=== PATIENT | male | born 1935 | race Caucasian/White ===

== ENCOUNTER 2016-09-11 17:15 | Inpatient (IN) | payer OTHER ==
[2016-09-11] MEDS ORDERED: NS 1,000 ML IV ONE ×2 (17:41→18:58)
[2016-09-11] MEDS ORDERED: LASIX IV ONE (17:41)
[2016-09-11 18:17] LABS: ALLEN TEST YES; BE -5.8 mmoll (-3.0-3.0); BLOOD TYPE ARTERIAL; DRAW SITE L RADIAL; O2(CT) 21.8 mL/dL (15.0-23.0); PCO2(98.6) 28 mmHg (35-45); PO2(98.6) 111 mmHg (60-100); SAMPLE BLOOD; SAO2 100.3 % (95.0-100.0)
[2016-09-11 18:18] LABS: MODALITY VENTIMASK
[2016-09-11 18:19] LABS: MANUAL DIFF NEEDED? NO
[2016-09-11 18:43] LABS: INR 1.11; PROTIME 11.8 Seconds (9.2-11.7); PTT 30.1 Seconds (22.0-36.0)
[2016-09-11 18:44] LABS: BASO% 0.6 % (0.0-0.8); EOS% 2.6 % (0.0-10.0); HEMATOCRIT 51.2 % (42.0-52.0); IMM GRAN# 0.55 X1000 (0.0-0.04); IMM GRAN% 3.6 % (0.0-0.5); LYMPH# 2.01 X1000 (1.2-3.4); LYMPH% 13.1 % (20.5-51.1); MCH 31.6 PG (27-31); MCHC 31.3 g/dL (33-37); MONO# 1.48 X1000 (0.11-0.59); MONO% 9.6 % (1.7-9.3); MPV 12.2 FL (7.4-10.4); NEUT% 70.5 % (42.2-75.2); PLT 220 X1000 (130-400); RBC 5.07 XMIL (4.7-6.1)
[2016-09-11 18:57] LABS: ALBUMIN 3.3 g/dL (3.5-5.0); CALCIUM 9.9 mg/dL (8.8-10.2); MAGNESIUM 2.9 mg/dL (1.5-2.7); POTASSIUM 5.5 mmol/L (3.5-5.1); TOTAL BILIRUBIN 0.4 mg/dL (0.20-1.00); TOTAL PROTEIN 6.3 g/dL (6.3-8.3)
[2016-09-11] MEDS ORDERED: VANCOMYCIN 1 GM/NS 250 ML IV ONE (18:57)
[2016-09-11] MEDS ORDERED: ZITHROMAX 500 MG/NS 250 ML IV ONE (18:58)
[2016-09-11 19:24] LABS: URINE CULTURE NEEDED? NO; URINE MICRO REVIEW NEEDED? NO; URINE SOURCE CATH
[2016-09-11 19:27] LABS: BILIRUBIN URINE NEGATIVE (NEGATIVE); BLOOD URINE NEGATIVE (NEGATIVE); COLOR YELLOW; GLUCOSE URINE NEGATIVE (NEGATIVE); LEUKOCYTES URINE NEGATIVE (NEGATIVE); NITRITE URINE NEGATIVE (NEGATIVE); PROTEIN URINE NEGATIVE (NEGATIVE); TURBIDITY URINE CLEAR (CLEAR); UROBILINOGEN URINE NORMAL (NORMAL)
[2016-09-11 19:29] LABS: UR EPITHELIAL CELLS <10 /HPF (<10); URINE BACTERIA NEGATIVE /HPF; URINE RBC <10 /HPF (<10); URINE WBC <10 /HPF (<10)
[2016-09-11] MEDS: DUONEB (A & A) INH SCH ×2 (19:30→23:33)
[2016-09-11] MEDS ORDERED: LEVAQUIN 750 MG/D5W 150 ML IV SCH (19:30)
[2016-09-11] MEDS: LOVENOX SUBQ SCH (22:08)
[2016-09-11] MEDS: SODIUM CHLORIDE 0.9% INJ SCH (22:09)
[2016-09-11] MEDS: PROTONIX IV SCH (22:09)
[2016-09-12] MEDS: NEO-SYNEPHRINE 50 MG in NS 250 ML IV SCH ×2 (02:26→21:00)
[2016-09-12] MEDS: DUONEB (A & A) INH SCH ×6 (03:38→23:19)
--- NOTE | 2016-09-12 07:16 | HISTORY AND PHYSICAL ---
HISTORY OF PRESENT ILLNESS: This is a 81-year-old white gentleman who was a resident of [facility]. He was transferred after initial admission here. He had a stroke with aphasia and had difficulty in swallowing. Apparently, it appeared like he had aspirated at the intermediate. The x-ray revealed left lower lobe pneumonia. He had leukocytosis. He became very hypoxic and was sent to the emergency room for evaluation. There, he was found to be very hypoxic and short of breath; hence, he was admitted. He has history of bladder tumor, history of TIAs in the past, and, according to his , he had some carotid artery problems probably on the right side during his last admission. He is totally aphasic and cannot communicate. MEDICATIONS: Home medications include scopolamine; Transderm Scop; potassium chloride; pravastatin 40 mg; metoprolol plus hydrochlorothiazide 1 tablet b.i.d. 15-25; metformin 500 mg b.i.d.; enoxaparin 40 mg every 24 hours; amlodipine and benazepril 1 tab daily, and aspirin daily. REVIEW OF SYSTEMS: Other than shortness of breath and fever, it is noncontributory. PHYSICAL EXAMINATION: VITAL SIGNS: Temperature 97.4 degrees Fahrenheit. Pulse 112 per minute. Respiratory rate 24 per minute. Blood pressure was only 77/42. HEENT: Head normocephalic. Eyes: Pupils PERRLA. Fundus examination could not be done. ENT examination grossly unremarkable. NECK: Supple. JVP normal. There is no evidence of lymphadenopathy, thyroid enlargement. EXTREMITIES: There is mild pedal edema. No calf tenderness, anemia, cyanosis, or clubbing noted. Pedal pulses feeble. BREAST EXAM: Normal. CHEST: Normal on inspection. LUNGS: Bilateral basal rales with some expiratory wheezing. PMI in normal position. HEART: Sounds normal. No murmur, gallop or rub noted. ABDOMEN: Nondistended. Hernial orifices normal. No guarding, rigidity, free fluid, masses, or organomegaly. Bowel sounds normal. RECTAL EXAM: Deferred. AFTER SCHOOL PROGRAM COORDINATOR: Higher functions, patient cannot communicate well. He has aphasia. Cranial nerves grossly normal. MOTOR AND SENSORY SYSTEM: Examination produce flaccidity on the right side. Deep tendon reflexes sluggish. Plantars downgoing. SKULL AND SPINE: Examination normal. No cerebellar signs or signs of meningeal irritation. LOCOMOTOR EXAM: Unremarkable. SKIN EXAM: Unremarkable. CLINICAL IMPRESSION: Patient is having some respiratory distress with pneumonia. He probably has aspirated. We have given him 1 dose of vancomycin. Start IV Levaquin and azithromycin has been started. We will get a Pulmonary consult and try to admit him to ICU tonight.
[2016-09-12] MEDS ORDERED: NS 1,000 ML IV SCH (08:00)
--- NOTE | 2016-09-12 08:04 | HISTORY AND PHYSICAL ---
ADDENDUM: His CBC shows white count of 15.4, hemoglobin is 16 g. INR is 1.11. Blood gases reveal he is on 50% FiO2 and oxygen PO2 is 111, pCO2 is 28, pH is 7.4. Chemistry reveals potassium of 5.5, BUN 139, 8 creatinine is 4.7. Urinalysis is negative. He appears to be in renal failure. We will get a Nephrology consult in the morning. Overall prognosis is poor.
[2016-09-12 08:32] LABS: BASO% 0.5 % (0.0-0.8); EOS# 0.36 X1000 (0.0-0.7); EOS% 1.6 % (0.0-10.0); HEMATOCRIT 47.4 % (42.0-52.0); IMM GRAN# 0.57 X1000 (0.0-0.04); IMM GRAN% 2.6 % (0.0-0.5); LYMPH# 1.63 X1000 (1.2-3.4); LYMPH% 7.4 % (20.5-51.1); MANUAL DIFF NEEDED? NO; MCH 31.8 PG (27-31); MCHC 31.6 g/dL (33-37); MCV 100.6 FL (81-99); MONO# 1.95 X1000 (0.11-0.59); MONO% 8.9 % (1.7-9.3); MPV 11.8 FL (7.4-10.4); PLT 227 X1000 (130-400); RBC 4.71 XMIL (4.7-6.1)
--- NOTE | 2016-09-12 08:36 | Diag Imaging Result Document ---
PROCEDURE NAME: CHEST-1 VIEW - 09/12/2016 AP PORTABLE CHEST AT 0745 HOURS: FINDINGS: There is atelectasis present in the left base. The study is somewhat suboptimal due to motion artifact. Otherwise, compared to 09/11/2016 there has been no significant change in the appearance of the chest. IMPRESSION: Stable chest.
--- NOTE | 2016-09-12 08:55 | Diag Imaging Result Document ---
PROCEDURE NAME: CHEST-PORTABLE - 09/11/2016 AP PORTABLE CHEST: TIME: 1900 hours. FINDINGS: The inspiration is less optimal than on 08/18/2016. Otherwise, there has been no significant change. IMPRESSION: Stable chest.
[2016-09-12] MEDS ORDERED: LASIX IV SCH (09:00)
[2016-09-12 09:37] LABS: ALBUMIN 2.8 g/dL (3.5-5.0); CALCIUM 9.1 mg/dL (8.8-10.2)
--- NOTE | 2016-09-12 09:51 | Diag Imaging Result Document ---
PROCEDURE NAME: CHEST-PORTABLE - 09/12/2016 AP PORTABLE ABDOMEN AND CHEST FOR NG TUBE PLACEMENT: TIME: 0855 hours. FINDINGS: The NG tube tip is in the distal esophagus. IMPRESSION: NG tube tip is in the distal esophagus.
[2016-09-12] MEDS: HUMULIN R SUBQ SCH ×3 (11:17→20:12)
[2016-09-12 11:47] LABS: UR CREAT RANDOM 86.2 mg/dL (14-26); UR PROT RANDOM 23.9 mg/dL
[2016-09-12] MEDS: D5W 1,000 ML IV SCH ×2 (12:58→23:35)
[2016-09-12] MEDS: AZACTAM 1 GM in NS 50 ML IV SCH ×2 (13:47→22:08)
--- NOTE | 2016-09-12 14:54 | CONSULTATION ---
DATE OF CONSULTATION: 09/12/2016 PULMONARY CONSULTATION: REFERRING PHYSICIAN: Dr. De Los Santos. CHIEF COMPLAINT: Shortness of breath. HISTORY OF PRESENT ILLNESS: This is a 81-year-old female with a past medical history of TIAs, CHF, diabetes, that presented to the hospital from [facility] with complaints of shortness of breath. Apparently the staff at the assisted said that he was hypoxic and short of breath at their facility. At this time he is in ICU and does not appear to be in any respiratory distress. He is aphasic and does not follow commands. He does have family at the bedside. He states that at the rehab facility he was talking, conversing , and following commands. He has been admitted to the ICU for further evaluation, management, and treatment. REVIEW OF SYSTEMS: Unable to determine secondary to patient's current state. PAST MEDICAL HISTORY: As mentioned in the HPI, otherwise noncontributory. SOCIAL HISTORY: The patient lives at [facility] after being discharged from the hospital from [facility]. FAMILY HISTORY: Noncontributory. ALLERGIES: Penicillin. ACTIVE MEDICATIONS: DuoNeb, Lovenox, Humulin, Levaquin, Protonix, phenylephrine. PHYSICAL EXAMINATION: Vital Signs: Temperature 97.3 degrees, heart rate 109, respiratory rate 27, blood pressure 118/55, oxygen saturation 100%. General: Lying in bed. No acute distress noted. Family at bedside. HEENT: Normocephalic and atraumatic. FANTA. Dry mucous membranes. Cardiovascular: S1 and S2 present. Chest: Reduced entry. Abdomen: Nondistended. Bowel sounds present in all quadrants. Extremities: Trace pedal edema noted. Neuro: The patient is not communicating or following commands. LABS, INVESTIGATIONS: WBC 21.99, RBC IS 4.71, hemoglobin 15, hematocrit 47.4, platelet count 227,000. Sodium 158, potassium 5.5, chloride 119, carbon dioxide 24, anion gap 15, BUN 139, creatinine 4.7, glucose 177. Urinalysis unremarkable. Blood gas reveals a pH 7.4, pCO2 of 28, PO2 of 111, HCO3 of 20.4, SaO2 of 100. Blood cultures pending. Chest x-ray performed on 09/12/2016 shows atelectasis in the left base, otherwise stable chest. ASSESSMENT AND PLAN: This is a 81-year-old male with past medical history mentioned in the history and physical that was sent from [facility] for shortness of breath. Pneumonia and aspiration initially thought, CVA (old) complicating the picture. It appears to be that the patient does have some encephalopathy here. He has recently had transient ischemic attacks. His chest x-ray this morning does not show any obvious pneumonia. The patient is tolerating a 35% Ventimask well. We will continue to supply IV antibiotics, bronchodilators, GI and DVT prophylaxis, and further treatment pending diagnostic studies. Thank you for the courtesy of this consult. [facility] HOSPITAL[facility]
--- NOTE | 2016-09-12 15:28 | CONSULTATION ---
DATE OF CONSULTATION: 09/12/2016 REASON FOR ADMISSION: A history of a bladder tumor and TIA on 08/20/2016. Patient has had increased work of breathing with difficulty swallowing secondary to patient having aphasia due to his recent TIA. X-ray upon admission to the [facility] indicates a left lower lobe pneumonia and leukocytosis. The patient was hypoxic in the emergency room and was found to be short of breath. Subsequently, he was admitted to [facility]'s ICU and is currently being worked up and evaluated. Patient is unable to communicate today. No family is available for review of systems. Best obtained from chart. As noted per previous medical history, patient has had a history of hypertension, recent TIA on 08/20/2016. Otherwise no further notes noted. Previous chart indicates that he has had a bladder tumor. He is followed by Dr. Tan on 05/02/2016. He has a history of BPH with bladder neck contracture. Patient appears to have had a lithotripsy done in May 2015 with a retrograde pyelogram on April 2016. CURRENT ALLERGIES: LISTED PENICILLIN. HOME MEDICATIONS: Have been reviewed. He is on metformin, potassium chloride, Lotrel, Lopressor, Pravachol, Lovenox, transderm scopolamine, enteric-coated aspirin. REVIEW OF SYSTEMS: Unable to perform review of systems due to no family available and patient's inability to communicate. VITAL SIGNS: His current vital signs temperature 98.2 degrees, blood pressure 118/55, heart rate 115, respirations are 29. He is on 50% Ventimask. His saturation was 93%. He has had 1650 in, 750 out per Tuttle catheter. LABS: Today sodium 158, potassium 5, chloride 125, CO2 22, BUN 129, creatinine 4.2, glucose 179, anion gap of 11, calcium 9.1, phosphorus 4, albumin 2.8. White count 21.99, hemoglobin 15, hematocrit 47.4 with a platelet count of 227,000. Patient has a renal ultrasound that is still currently pending. He has a FENa score of 2.04%. His last baseline creatinine in 2016 was 1.2- 1.5. Chest x-ray this a.m. shows adequate NG tube placement with a stable chest. PHYSICAL EXAMINATION: General: This is a 81-year-old white male. He is able to make eye contact. He does attempt to squeeze your hand left greater than right. Otherwise unable to follow any further commands. Remains nonverbal. HEENT: Normocephalic, atraumatic. Conjunctiva is pale. He has FANTA. Pupils are slightly constricted. Neck: Supple. Trachea midline. No JVD. Some thyroid enlargement is noted upon swallowing. Cardiovascular: He is regular rate and rhythm. He is tachycardic on the monitor. Lungs: Diminished breath sounds bilateral. Faint crackles to the posterior bases right greater than left. Remains on O2. Abdomen: Nondistended. Positive bowel sounds. Soft, nontender. Genitourinary: Tuttle catheter remains in place. He currently has adequate urine out at this time. Integumentary: No rashes or lesions noted. He does have several different stages of healing with ecchymosis. Neurological: As mentioned above. ASSESSMENT AND PLAN: 1. Acute kidney injury on chronic kidney disease stage 3B. This appears that this may be acute tubular necrosis secondary to unknown causes. He has a renal ultrasound that is still currently pending. FENa score is in the 2s. He currently has Ignacio- Synephrine infusing for low blood pressure. The patient is slightly tachycardic today. He has leukocytosis and continues on renal dosed antibiotics. Through the day his UOP has improved and his cr has fallen overnight. I expect that he will continue to improve. rg 2. Electrolytes. Patient has hypernatremia and hyperkalemia. We will change normal saline to D5 half-normal. 3. Hyperkalemia. No indications for any changes at this time. We will continue to monitor with hopes that his base fluid of D5W will help pull his potassium down. 4. Acid-base balance. This remains stable. 5. Anemia. This is actually above target. 6. Pneumonia with sepsis. Patient is currently on renal dosed antibiotics at this time. I would to thank you for allowing us to follow with this patient. Seen, data reviewed, discussed with Ariana Maldonado on 09/12/16. I agree with the above assessment and plan of care. rg Dictated by GAMA Antoine for Marcellus Morgan MD [facility]
--- NOTE | 2016-09-12 15:42 | Diag Imaging Result Document ---
PROCEDURE NAME: US RENAL 2 (RETROPER) COMPLETE - 09/12/2016 RENAL ULTRASOUND: FINDINGS: The right kidney measures 12.6 x 6.6 x 5.5 cm. Normal renal echogenicity and cortical thickness. There is a 6 mm echogenic focus in the lower pole. No hydronephrosis. No renal mass. The left kidney measures 9.9 x 5.1 x 5.6 cm. Normal renal echogenicity and cortical thickness. No renal mass. No stone or hydronephrosis. IMPRESSION: I believe there is a nonobstructing right renal stone. No other abnormality identified.
[2016-09-12] MEDS ORDERED: CALMOSEPTINE OINTMENT TOP ONE (16:27)
[2016-09-12] MEDS: LOVENOX SUBQ SCH (18:31)
[2016-09-12] MEDS: PROTONIX IV SCH (18:31)
[2016-09-12] MEDS: TRANSDERM-SCOP TD SCH (19:56)
[2016-09-12] MEDS ORDERED: BLISTEX MEDICATED BERRY LIP BALM TOP PRN (22:12)
[2016-09-13] MEDS: DUONEB (A & A) INH SCH ×6 (03:46→22:54)
[2016-09-13 04:59] LABS: ALLEN TEST YES; BE -3.2 mmoll (-3.0-3.0); BLOOD TYPE ARTERIAL; DRAW SITE R RADIAL; METHB 1.6 % (0.0-1.5); PCO2(98.6) 29 mmHg (35-45); SAMPLE BLOOD; SAO2 97.4 % (95.0-100.0); THB 14.5 g/dL (11.5-17.4); pH(98.6) 7.44 (7.35-7.45)
[2016-09-13 05:00] LABS: MODALITY CANNULA
[2016-09-13] MEDS: AZACTAM 1 GM in NS 50 ML IV SCH ×4 (05:05→21:26)
[2016-09-13 05:06] LABS: MANUAL DIFF NEEDED? NO
[2016-09-13 05:10] LABS: BASO% 0.4 % (0.0-0.8); EOS# 0.44 X1000 (0.0-0.7); EOS% 2.3 % (0.0-10.0); HEMATOCRIT 45.1 % (42.0-52.0); HEMOGLOBIN 14.3 g/dL (14.0-18.0); IMM GRAN# 0.38 X1000 (0.0-0.04); IMM GRAN% 1.9 % (0.0-0.5); LYMPH# 1.34 X1000 (1.2-3.4); LYMPH% 6.9 % (20.5-51.1); MCH 31.8 PG (27-31); MCHC 31.7 g/dL (33-37); MCV 100.2 FL (81-99); MONO% 7.2 % (1.7-9.3); NEUT% 81.3 % (42.2-75.2); PLT 162 X1000 (130-400)
[2016-09-13 05:53] LABS: ALBUMIN 2.7 g/dL (3.5-5.0); POTASSIUM 4.1 mmol/L (3.5-5.1)
[2016-09-13] MEDS: HUMULIN R SUBQ SCH ×4 (06:10→20:06)
--- NOTE | 2016-09-13 07:39 | Diag Imaging Result Document ---
PROCEDURE NAME: CHEST-1 VIEW - 09/13/2016 SINGLE FRONTAL RADIOGRAPH OF THE CHEST: COMPARISON: 09/12/2016. FINDINGS: The NG tube has been advanced. The tip now projects below the diaphragm and out of the field of view, assumed to be in the stomach in the expected position. Left basilar atelectasis and/or infiltrate is essentially stable. No new consolidations are identified. Cardiac silhouette is unchanged. IMPRESSION: Interval advancement of the NG tube that now projects well below the diaphragm and otherwise stable chest.
[2016-09-13] MEDS ORDERED: ASPIRIN EC PO SCH (09:00)
[2016-09-13] MEDS: D5W 1,000 ML IV SCH ×2 (10:35→19:51)
--- NOTE | 2016-09-13 10:57 | PROGRESS NOTE ---
DATE: 09/13/2016 SUBJECTIVE: Mr. Urena is more responsive today. He remains nonverbal. He is unable to move much. He does turn his head to verbal stimuli and is attempting to squeeze my hand to command. OBJECTIVE: Vital Signs: His most recent vital signs, he remains afebrile. Blood pressure 93/58, heart rate 115, respirations 28. He remains on 2 L. Last recorded saturation of 97%. He has had 2423 in. He has had 2025 out per Tuttle catheter. General: This is a 81-year- old, white male. He is currently resting in bed. He appears chronically ill. No acute distress. Skin: Warm and dry. HEENT: Normocephalic, atraumatic. Conjunctiva is pale. He has pupils equal, round, and reactive to light. Pupils remains slightly constricted. Neck: Supple. Trachea midline. No jugular venous distention. His thyroid continues to look slightly enlarged. Cardiovascular: Regular rate and rhythm. He is tachycardic on the monitor. No murmur or gallop appreciated. Lungs: Clear to auscultation anteriorly. Equal excursion. Faint crackles noted to the posterior base, right greater than left. Abdomen: Soft, nontender. Positive bowel sounds. Extremities: Have no edema. No clubbing or cyanosis. Integumentary: No rashes or lesions noted. Neurological: As mentioned above. LABS: Sodium 156, potassium 4.1, chloride 126, CO2 18. BUN 91, creatinine 2.9. Glucose 191. Anion gap 12, calcium 9, phosphorus 2.7, albumin 2.7. White count 19.5, hemoglobin 14.3, hematocrit 45.1, with a platelet count of a 152,000. Blood culture negative. His ABGs are pH 7.44, pCO2 29, pO2 has not been recorded, bicarb is 22.3. ASSESSMENT AND PLAN: 1. Acute kidney injury on chronic kidney disease stage 3-B. Patient's BUN and creatinine have slowly responded to an increase in his blood pressure and fluid volume resuscitation. He remains on Ignacio-Synephrine. His IVs are D5W at 100 mL an hour. No indications for any changes at this time. His urine output has improved. We will continue to monitor. 2. Electrolytes. These remain stable with a mild hypernatremia. Again, we will leave him on his D5W. Ignacio-Synephrine has to be mixed in normal saline. We will monitor labs in the a.m. 3. Acid-base balance. This is stable. 4. Anemia. This remains stable. 5. Pneumonia with sepsis. Patient is on renal dosed antibiotics. I would to thank you for allowing us to follow with this patient. Seen, data reviewed, discussed with Ariana Maldonado on 09/13/16. I agree with the above assessment and plan of care. rg Dictated by GAMA Antoine for Marcellus Morgan MD [facility]
[2016-09-13] MEDS: LEVAQUIN 250 MG/D5W 50 ML IV SCH (19:51)
[2016-09-13] MEDS: PROTONIX IV SCH (19:52)
[2016-09-13] MEDS: SODIUM CHLORIDE 0.9% INJ SCH (19:52)
[2016-09-13] MEDS: LOVENOX SUBQ SCH (19:52)
[2016-09-13] MEDS ORDERED: LEVAQUIN 500 MG/D5W 100 ML IV SCH (22:00)
[2016-09-14] MEDS: DUONEB (A & A) INH SCH ×7 (03:41→22:34)
[2016-09-14 04:33] LABS: ALLEN TEST YES; BE -3.3 mmoll (-3.0-3.0); BLOOD TYPE ARTERIAL; DRAW SITE R RADIAL; METHB 1.6 % (0.0-1.5); O2(CT) 18.6 mL/dL (15.0-23.0); PCO2(98.6) 31 mmHg (35-45); PO2(98.6) 65 mmHg (60-100); SAMPLE BLOOD; SAO2 95.8 % (95.0-100.0); THB 14.3 g/dL (11.5-17.4); pH(98.6) 7.42 (7.35-7.45)
[2016-09-14 04:36] LABS: MODALITY CANNULA
[2016-09-14] MEDS: AZACTAM 1 GM in NS 50 ML IV SCH ×3 (06:25→23:12)
[2016-09-14 06:35] LABS: HEMATOCRIT 41.7 % (42.0-52.0); HEMOGLOBIN 13.1 g/dL (14.0-18.0); MANUAL DIFF NEEDED? NO; MCHC 31.4 g/dL (33-37); MPV 12.3 FL (7.4-10.4)
--- NOTE | 2016-09-14 06:35 | Diag Imaging Result Document ---
PROCEDURE NAME: CHEST-1 VIEW - 09/14/2016 PORTABLE CHEST: COMPARISON: Compared to 09/13/2016. FINDINGS: There is a nasogastric tube overlying the esophagus. The stomach is not included and I do not see the distal portion of the catheter. The heart is not enlarged. The vessels are not overly distended. Partial clearing of the left base. No pleural effusions identified. IMPRESSION: Mild interval improvement.
[2016-09-14 06:57] LABS: ALBUMIN 2.5 g/dL (3.5-5.0); CALCIUM 8.7 mg/dL (8.8-10.2); POTASSIUM 3.8 mmol/L (3.5-5.1)
[2016-09-14] MEDS: HUMULIN R SUBQ SCH ×4 (07:01→21:01)
[2016-09-14 07:58] LABS: BASO% 0.2 % (0.0-0.8); IMM GRAN# 0.27 X1000 (0.0-0.04); IMM GRAN% 1.6 % (0.0-0.5); LYMPH# 0.91 X1000 (1.2-3.4); LYMPH% 5.4 % (20.5-51.1); MCH 31.6 PG (27-31); MCV 100.5 FL (81-99); MONO# 0.82 X1000 (0.11-0.59); MONO% 4.9 % (1.7-9.3); NEUT% 84.9 % (42.2-75.2); PLT 140 X1000 (130-400); RBC 4.15 XMIL (4.7-6.1)
[2016-09-14] MEDS: D5W 1,000 ML IV SCH ×2 (08:47→19:24)
[2016-09-14] MEDS ORDERED: POTASSIUM PHOSPHATE 30 MMOL in NS 250 ML IV ONE (09:20)
--- NOTE | 2016-09-14 09:32 | PROGRESS NOTE ---
DATE: 09/14/2016 SUBJECTIVE: He was just having a bath. He is groaning but he does look at me. He did not answer questions. OBJECTIVE: Vital Signs: Blood pressure 103/58, heart rate 119, respirations 23, afebrile. Intake 4.5 L. Output 1.3 L. Physical Examination: General: No acute distress. Skin: Warm and dry. HEENT: Conjunctivae are pink. Neck: Neck veins are not appreciated. Trachea is midline. Heart: Regular. Tachycardic, gallop. Lungs: Have equal breath sounds. No crackles. Abdomen: Soft, nontender. Bowel sounds are present. Extremities: Have minimal edema. No clubbing or cyanosis. Laboratory Data: Sodium 152, potassium 3.8, chloride 120, bicarbonate 20, BUN 72, creatinine 2.4. Albumin 2.5. IMPRESSION: 1. Acute kidney injury. Progressive improvement with volume resuscitation. Continue same. 2. Hypernatremia. Progressive improvement with free water replacement. Continue same. 3. Acid-base. Moderate metabolic acidosis that is stable.
--- NOTE | 2016-09-14 10:50 | Diag Imaging Result Document ---
PROCEDURE NAME: CHEST/ABD TUBE PLACEMENT - 09/14/2016 SEMIUPRIGHT AP CHEST: COMPARISON: Comparison is made to the study performed earlier. FINDINGS: The nasogastric tube has been advanced since the prior exam. This overlies the esophagus and stomach. The distal portion extends below the lower portion of the film in the abdomen. IMPRESSION: Nasogastric tube overlies the esophagus and the stomach.
--- NOTE | 2016-09-14 11:18 | EKG Report ---
Test Performed on : 09/13/2016 3:21:31 PM Test Reason : TACYCARDIA Blood Pressure : / mmHG Vent. Rate : 112 BPM Atrial Rate : 112 BPM P-R Int : 156 ms QRS Dur : 086 ms QT Int : 316 ms P-R-T Axes : 053 038 054 degrees QTc Int : 431 ms Sinus tachycardia. Low voltage QRS Nonspecific T wave abnormality Abnormal ECG When compared with ECG of 13-SEP-2016 09:37, (Unconfirmed) premature ventricular complexes. are no longer present Confirmed by Roxann Diggs MD ([id number]) on 09/14/2016 12:12:26 PM
--- NOTE | 2016-09-14 11:18 | EKG Report ---
Test Performed on : 09/13/2016 09:37:06 AM Test Reason : TACHYCRDIA Blood Pressure : / mmHG Vent. Rate : 117 BPM Atrial Rate : 117 BPM P-R Int : 154 ms QRS Dur : 088 ms QT Int : 320 ms P-R-T Axes : 051 035 076 degrees QTc Int : 446 ms Sinus tachycardia. with frequent premature ventricular complexes. Low voltage QRS Nonspecific T wave abnormality Abnormal ECG When compared with ECG of 22-AUG-2016 06:26, premature ventricular complexes. are now present Vent. rate has increased BY 60 BPM Criteria for Inferior infarct are no longer present Confirmed by Roxann Diggs MD ([id number]) on 09/14/2016 12:12:24 PM
[2016-09-14] MEDS: ASPIRIN PO SCH (12:31)
[2016-09-14] MEDS: PROTONIX IV SCH (20:50)
[2016-09-14] MEDS: SODIUM CHLORIDE 0.9% INJ SCH (20:51)
[2016-09-14] MEDS: LOVENOX SUBQ SCH (20:51)
[2016-09-15] MEDS: DUONEB (A & A) INH SCH ×6 (03:34→23:44)
[2016-09-15 04:39] LABS: ALLEN TEST YES; BLOOD TYPE ARTERIAL; DRAW SITE R RADIAL; METHB 1.6 % (0.0-1.5); O2(CT) 17.2 mL/dL (15.0-23.0); PCO2(98.6) 28 mmHg (35-45); PO2(98.6) 116 mmHg (60-100); SAMPLE BLOOD; SAO2 98.9 % (95.0-100.0); THB 12.7 g/dL (11.5-17.4); pH(98.6) 7.49 (7.35-7.45)
[2016-09-15 04:40] LABS: MODALITY CANNULA
[2016-09-15 05:03] LABS: MANUAL DIFF NEEDED? NO
[2016-09-15 05:17] LABS: BASO% 0.5 % (0.0-0.8); EOS# 0.48 X1000 (0.0-0.7); EOS% 3.6 % (0.0-10.0); HEMATOCRIT 39.5 % (42.0-52.0); HEMOGLOBIN 12.6 g/dL (14.0-18.0); IMM GRAN% 2.3 % (0.0-0.5); LYMPH# 1.42 X1000 (1.2-3.4); LYMPH% 10.7 % (20.5-51.1); MCH 31.6 PG (27-31); MCHC 31.9 g/dL (33-37); MONO# 0.85 X1000 (0.11-0.59); MONO% 6.4 % (1.7-9.3); MPV 11.9 FL (7.4-10.4); NEUT% 76.5 % (42.2-75.2); PLT 125 X1000 (130-400); RBC 3.99 XMIL (4.7-6.1)
[2016-09-15] MEDS: D5W 1,000 ML IV SCH (05:58)
[2016-09-15 06:13] LABS: ALBUMIN 2.3 g/dL (3.5-5.0); CALCIUM 8.4 mg/dL (8.8-10.2); POTASSIUM 3.8 mmol/L (3.5-5.1)
[2016-09-15] MEDS: AZACTAM 1 GM in NS 50 ML IV SCH ×3 (06:15→22:35)
[2016-09-15] MEDS: HUMULIN R SUBQ SCH ×4 (06:45→20:37)
[2016-09-15] MEDS: ASPIRIN PO SCH (08:25)
--- NOTE | 2016-09-15 08:38 | Diag Imaging Result Document ---
PROCEDURE NAME: CHEST-1 VIEW - 09/15/2016 PORTABLE CHEST X-RAY: COMPARISON: 09/14/2016. FINDINGS: Stable nasogastric tube in good position. There is hazy left lower lobe infiltrate as seen by loss of the left hemidiaphragm. There is cardiomegaly and pulmonary vascular congestion that has worsened since 09/14/2016. IMPRESSION: Worsening pulmonary vascular congestion. New left lower lobe infiltrate or atelectasis.
--- NOTE | 2016-09-15 09:48 | PROGRESS NOTE ---
DATE: 09/15/2016 SUBJECTIVE: He was asleep and did not arouse with verbal and tactile stimuli. OBJECTIVE: Vital Signs: Blood pressure 111/58, heart rate 107, respirations 24, T-max in 99.6. Intake 4.4 L. Output 1.5 L. General: In no acute distress. Skin: Warm and dry. Conjunctivae are pink. Neck: Neck veins are not appreciated. Heart: Regular without gallops. Lungs: Have equal breath sounds. No crackles or wheezes. Sonorous. Abdomen: Soft and nontender. Bowel sounds are present. Extremities: No edema, clubbing, or cyanosis. LABORATORY DATA: Sodium 147, potassium 3.8, chloride 115, bicarbonate 20, BUN 52, creatinine 1.7. Hemoglobin 12.6. IMPRESSION: 1. Acute kidney injury. Resolving with IV fluid resuscitation. He is developing some pulmonary congestion, so we will decrease his intake. 2. Electrolytes: Hypernatremia is slowly improving. He is receiving free water by his nasogastric tube. Stop his IV D5. 3. Acid-base: Acceptable.
[2016-09-15] MEDS ORDERED: POTASSIUM PHOSPHATE 30 MEQ in NS 250 ML IV ONE (10:00)
[2016-09-15] MEDS: LEVAQUIN 250 MG/D5W 50 ML IV SCH (20:16)
[2016-09-15] MEDS: LOVENOX SUBQ SCH (20:16)
[2016-09-15] MEDS: SODIUM CHLORIDE 0.9% INJ SCH (20:16)
[2016-09-15] MEDS: PROTONIX IV SCH (20:16)
[2016-09-15] MEDS: TRANSDERM-SCOP TD SCH (20:17)
[2016-09-16 04:45] LABS: ALLEN TEST YES; BE 1.1 mmoll (-3.0-3.0); BLOOD TYPE ARTERIAL; DRAW SITE R RADIAL; METHB 1.8 % (0.0-1.5); O2(CT) 20.4 mL/dL (15.0-23.0); PCO2(98.6) 32 mmHg (35-45); PO2(98.6) 97 mmHg (60-100); SAMPLE BLOOD; THB 15.2 g/dL (11.5-17.4); pH(98.6) 7.48 (7.35-7.45)
[2016-09-16 04:48] LABS: MODALITY COOL AEROSOL
[2016-09-16 05:03] LABS: MANUAL DIFF NEEDED? NO
[2016-09-16] MEDS: AZACTAM 1 GM in NS 50 ML IV SCH ×3 (05:04→21:12)
[2016-09-16 05:22] LABS: BASO% 0.4 % (0.0-0.8); EOS# 0.41 X1000 (0.0-0.7); EOS% 4.3 % (0.0-10.0); HEMOGLOBIN 13.1 g/dL (14.0-18.0); IMM GRAN# 0.28 X1000 (0.0-0.04); IMM GRAN% 2.9 % (0.0-0.5); LYMPH# 1.09 X1000 (1.2-3.4); LYMPH% 11.4 % (20.5-51.1); MCH 31.9 PG (27-31); MCHC 32.8 g/dL (33-37); MCV 97.3 FL (81-99); MONO# 0.76 X1000 (0.11-0.59); MPV 11.7 FL (7.4-10.4); PLT 129 X1000 (130-400); RBC 4.11 XMIL (4.7-6.1)
[2016-09-16 05:23] LABS: ALBUMIN 2.5 g/dL (3.5-5.0); CALCIUM 8.5 mg/dL (8.8-10.2); POTASSIUM 3.9 mmol/L (3.5-5.1)
[2016-09-16] MEDS: HUMULIN R SUBQ SCH ×4 (06:07→20:48)
[2016-09-16] MEDS: DUONEB (A & A) INH SCH ×6 (07:20→23:45)
[2016-09-16] MEDS: ASPIRIN PO SCH (08:20)
[2016-09-16] MEDS: PRAVACHOL PO SCH (08:20)
--- NOTE | 2016-09-16 08:55 | Diag Imaging Result Document ---
PROCEDURE NAME: CHEST-1 VIEW - 09/16/2016 PORTABLE CHEST X-RAY: COMPARISON: 09/15/2016. FINDINGS: Stable cardiomegaly. Stable hazy left basilar infiltrate, and infiltrate throughout the right lung. No new infiltrates. IMPRESSION: No change from prior.
[2016-09-16] MEDS ORDERED: D5W 1,000 ML IV SCH ×2 (10:45→12:18)
--- NOTE | 2016-09-16 14:19 | PROGRESS NOTE ---
DATE: 09/16/[address] MAGAÑA SUBJECTIVE: The patient remains ill in the ICU. He opens his eyes and will move his right arm and leg to painful stimuli but is not talkative and will not follow commands. OBJECTIVE: Afebrile, pulse 114, respirations 27, blood pressure 109/69, O2 at 2 L/minute 100%. CV: RRR. Lungs: Wet rhonchi bilateral lung castañeda. Extremities: 1+ lower extremity edema. Some edema in his hands and elbow areas. Neurologic: He opens his eyes but will not follow commands. Mild movements right arm and leg noted but none in the left arm and leg. Flaccid paralysis there. No calf tenderness or cords. LABORATORY DATA: Sodium 148, potassium 3.9, chloride 114, CO2 of 23. BUN 35, creatinine 1.3, glucose 140. Calcium 8.5, phosphorus 2.4, albumin 2.5. ABG on 2 L reveals pH 7.48, pCO2 of 32, PO2 of 97, HC03 of 25.7, O2 saturation 99%. White count 9.5, hemoglobin 13.1, hematocrit 40, platelets 129. Blood cultures x2 negative. ASSESSMENT: 1. 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 2. Acute renal insufficiency, improving with hydration, but now possibly heading toward some degree of volume overload. 3. Hypernatremia, improving, but still concern. 4. Possible aspiration. 5. Hypertension. 6. Diabetes mellitus. PLAN: At this time, Dr. Morgan is monitoring his electrolytes and his volume status. We are going to follow and assist in his care in this regard. Continue IV antibiotics that he is on. Continue supportive measures. He keeps pulling his NG tube out, so we are going to leave that out at this point fearing further complications with more aspiration, although he is receiving some free water via the NG tube. That may had to be replaced at some point. We will discuss further plans with family as we go along especially if the patient does not recover in regard to plans regarding PEG placement.
--- NOTE | 2016-09-16 14:59 | PROGRESS NOTE ---
DATE: 09/16/2016 SUBJECTIVE: He is more alert today. He looks at me and attempts to verbalize, though I still have trouble understanding him. OBJECTIVE: Vital Signs: Blood pressure 113/81, heart rate 125, respiration 25, afebrile. Intake 3.1 L. Output 1.5 L. PHYSICAL EXAMINATION: Elderly man in no distress. Skin is warm and dry. Conjunctivae are pink. Neck veins are not distended. Oropharynx is dry. Heart is regular. Lungs have equal breath sounds. No crackles. Abdomen soft, nontender. Bowel sounds present. Extremities have no edema, clubbing, or cyanosis. LABORATORY DATA: Sodium 148, potassium 3.9, chloride 114, bicarbonate 23. BUN 35, creatinine 1.3. IMPRESSION: 1. Acute kidney injury, resolving. 2. Hypernatremia, improved, but still above target. Continue D5. I will sign off. If I can be of further assistance, please do not hesitate to call.
[2016-09-16] MEDS: LOVENOX SUBQ SCH (20:46)
[2016-09-16] MEDS: PROTONIX IV SCH (20:47)
[2016-09-16] MEDS: SODIUM CHLORIDE 0.9% INJ SCH (20:47)
[2016-09-17] MEDS: DUONEB (A & A) INH SCH ×6 (03:30→22:37)
[2016-09-17 04:59] LABS: ALLEN TEST YES; BE 0.7 mmoll (-3.0-3.0); BLOOD TYPE ARTERIAL; DRAW SITE R RADIAL; METHB 1.5 % (0.0-1.5); O2(CT) 17.5 mL/dL (15.0-23.0); PCO2(98.6) 35 mmHg (35-45); PO2(98.6) 68 mmHg (60-100); SAMPLE BLOOD; SAO2 95.8 % (95.0-100.0); THB 13.5 g/dL (11.5-17.4); pH(98.6) 7.45 (7.35-7.45)
[2016-09-17 05:01] LABS: MODALITY CANNULA
[2016-09-17 05:24] LABS: BASO% 0.7 % (0.0-0.8); EOS# 0.38 X1000 (0.0-0.7); EOS% 4.6 % (0.0-10.0); HEMATOCRIT 39.6 % (42.0-52.0); HEMOGLOBIN 12.9 g/dL (14.0-18.0); IMM GRAN# 0.41 X1000 (0.0-0.04); IMM GRAN% 4.9 % (0.0-0.5); LYMPH# 1.12 X1000 (1.2-3.4); LYMPH% 13.5 % (20.5-51.1); MANUAL DIFF NEEDED? YES; MCH 31.9 PG (27-31); MCHC 32.6 g/dL (33-37); MONO# 0.75 X1000 (0.11-0.59); MPV 11.3 FL (7.4-10.4); NEUT% 67.3 % (42.2-75.2); PLT 123 X1000 (130-400); RBC 4.04 XMIL (4.7-6.1)
[2016-09-17] MEDS: AZACTAM 1 GM in NS 50 ML IV SCH ×3 (05:25→22:46)
[2016-09-17 05:36] LABS: ALBUMIN 2.5 g/dL (3.5-5.0); CALCIUM 8.6 mg/dL (8.8-10.2)
[2016-09-17 06:13] LABS: BANDS 2 % (0-1); EOS 2 % (1-10); LYMPHS 16 % (21-51); MONO 6 % (1-9)
[2016-09-17] MEDS: HUMULIN R SUBQ SCH ×4 (07:31→21:41)
[2016-09-17] MEDS: ASPIRIN PO SCH (09:06)
[2016-09-17] MEDS: PRAVACHOL PO SCH (09:07)
--- NOTE | 2016-09-17 09:55 | Diag Imaging Result Document ---
PROCEDURE NAME: CHEST-1 VIEW - 09/17/2016 PORTABLE CHEST: COMPARISON: 09/16/2016. FINDINGS: There is improvement in the small infiltrate at the left lung base. Stable cardiomegaly and pulmonary vascular congestion. No new infiltrates. IMPRESSION: Improvement from prior.
--- NOTE | 2016-09-17 17:37 | PROGRESS NOTE ---
DATE: 09/17/2016 SUBJECTIVE: The patient cannot speak at this time because of his stroke. He tries to make a few sounds. He is awake. I asked him if he was hurting and he kind of shrugged his shoulders. OBJECTIVE: Vital Signs: Blood pressure 137/86, respirations 30, pulse 90, temperature 98.4 degrees Fahrenheit. HEENT: Normocephalic. EOMs intact. PERRLA. Throat clear. Lungs: Have few rales in left base. Chest x-ray does show improvement of the left lower lobe infiltrate. Heart: Regular rate and rhythm without murmurs, gallops, or friction rubs. Abdomen: Soft. Active bowel sounds. No organomegaly or tenderness. Neurological: The patient has paralysis left side of his body. He has aphasia from his stroke. ASSESSMENT: 1. Probable aspiration pneumonia. 2. Status post cerebrovascular accident. PLAN: Continue support.
[2016-09-17] MEDS: LEVAQUIN 250 MG/D5W 50 ML IV SCH (19:48)
[2016-09-17] MEDS: LOVENOX SUBQ SCH (19:49)
[2016-09-17] MEDS: PROTONIX IV SCH (19:49)
[2016-09-17] MEDS: SODIUM CHLORIDE 0.9% INJ SCH (19:49)
[2016-09-18] MEDS: DUONEB (A & A) INH SCH ×6 (03:26→22:56)
[2016-09-18 04:53] LABS: ALLEN TEST YES; BE -0.8 mmoll (-3.0-3.0); BLOOD TYPE ARTERIAL; DRAW SITE R RADIAL; METHB 1.6 % (0.0-1.5); O2(CT) 19.7 mL/dL (15.0-23.0); PCO2(98.6) 30 mmHg (35-45); PO2(98.6) 83 mmHg (60-100); SAMPLE BLOOD; SAO2 98.2 % (95.0-100.0); THB 14.8 g/dL (11.5-17.4); pH(98.6) 7.47 (7.35-7.45)
[2016-09-18 04:54] LABS: MODALITY CANNULA
[2016-09-18] MEDS: AZACTAM 1 GM in NS 50 ML IV SCH ×3 (05:16→22:39)
[2016-09-18 05:45] LABS: BASO% 0.9 % (0.0-0.8); EOS# 0.29 X1000 (0.0-0.7); EOS% 3.3 % (0.0-10.0); HEMATOCRIT 41.9 % (42.0-52.0); HEMOGLOBIN 13.5 g/dL (14.0-18.0); IMM GRAN# 0.49 X1000 (0.0-0.04); IMM GRAN% 5.7 % (0.0-0.5); LYMPH# 1.25 X1000 (1.2-3.4); LYMPH% 14.4 % (20.5-51.1); MANUAL DIFF NEEDED? YES; MCH 31.5 PG (27-31); MCHC 32.2 g/dL (33-37); MCV 97.7 FL (81-99); MONO% 9.2 % (1.7-9.3); NEUT% 66.5 % (42.2-75.2); PLT 141 X1000 (130-400); RBC 4.29 XMIL (4.7-6.1)
[2016-09-18 06:01] LABS: LYMPHS 20 % (21-51); MONO 4 % (1-9)
[2016-09-18 06:02] LABS: CALCIUM 8.5 mg/dL (8.8-10.2)
[2016-09-18] MEDS: HUMULIN R SUBQ SCH ×4 (06:33→21:07)
[2016-09-18] MEDS: ASPIRIN PO SCH (08:28)
[2016-09-18] MEDS: PRAVACHOL PO SCH (08:29)
--- NOTE | 2016-09-18 08:36 | Diag Imaging Result Document ---
PROCEDURE NAME: CHEST-1 VIEW - 09/18/2016 PORTABLE CHEST X-RAY: COMPARISON: 09/17/2016. FINDINGS: Stable cardiomegaly and pulmonary vascular congestion. No change in the minimal central interstitial infiltrates, right greater than left, suggesting pulmonary edema. No new infiltrates. IMPRESSION: No change from prior.
--- NOTE | 2016-09-18 11:23 | PROGRESS NOTE ---
DATE: 09/18/2016 SUBJECTIVE: The patient is more alert today. He is trying to speak. He has garbled speech from his stroke. Still not moving the left side of his body much. OBJECTIVE: Vital Signs: Blood pressure 143/79, respirations 25, pulse 102, temp 98.5 degrees Fahrenheit. HEENT: Normocephalic. EOMs intact. PERRLA. Throat clear. Lungs: Have some scattered rales, rhonchi, and wheezes. Heart: Regular rate and rhythm without murmurs, gallops, or friction rubs. Abdomen: Soft. Active bowel sounds. No organomegaly or tenderness. Neurological: Unchanged. IMAGING: Chest x-ray today still shows a little pulmonary edema versus infiltrate, basically unchanged from previous x-ray. A little worse with the infiltrates on the right side than the left. Probably he has an aspiration pneumonia. ASSESSMENT: 1. Aspiration pneumonia. 2. Cerebrovascular accident. PLAN: Continue care.
[2016-09-18] MEDS: LOVENOX SUBQ SCH (19:35)
[2016-09-18] MEDS: SODIUM CHLORIDE 0.9% INJ SCH (19:35)
[2016-09-18] MEDS: PROTONIX IV SCH (19:35)
[2016-09-18] MEDS: TRANSDERM-SCOP TD SCH (19:36)
[2016-09-19] MEDS: DUONEB (A & A) INH SCH ×7 (03:34→23:28)
[2016-09-19 04:35] LABS: ALLEN TEST YES; BE -0.8 mmoll (-3.0-3.0); BLOOD TYPE ARTERIAL; DRAW SITE R RADIAL; METHB 1.3 % (0.0-1.5); O2(CT) 19.9 mL/dL (15.0-23.0); PCO2(98.6) 25 mmHg (35-45); PO2(98.6) 106 mmHg (60-100); SAMPLE BLOOD; SAO2 100.9 % (95.0-100.0); THB 14.6 g/dL (11.5-17.4); pH(98.6) 7.52 (7.35-7.45)
[2016-09-19 04:36] LABS: MODALITY ROOM AIR
[2016-09-19 05:20] LABS: HEMATOCRIT 43.1 % (42.0-52.0); RBC 4.39 XMIL (4.7-6.1)
[2016-09-19 05:21] LABS: BASO% 1.1 % (0.0-0.8); EOS# 0.54 X1000 (0.0-0.7); IMM GRAN# 0.45 X1000 (0.0-0.04); LYMPH# 1.12 X1000 (1.2-3.4); LYMPH% 12.5 % (20.5-51.1); MANUAL DIFF NEEDED? YES; MCH 31.9 PG (27-31); MCHC 32.5 g/dL (33-37); MCV 98.2 FL (81-99); MONO# 0.77 X1000 (0.11-0.59); MONO% 8.6 % (1.7-9.3); MPV 11.4 FL (7.4-10.4); NEUT% 66.8 % (42.2-75.2); PLT 158 X1000 (130-400)
[2016-09-19] MEDS: AZACTAM 1 GM in NS 50 ML IV SCH ×3 (05:27→21:20)
[2016-09-19 05:30] LABS: LYMPHS 22 % (21-51); MONO 2 % (1-9)
[2016-09-19 05:35] LABS: CALCIUM 8.5 mg/dL (8.8-10.2); POTASSIUM 4.2 mmol/L (3.5-5.1)
[2016-09-19] MEDS: HUMULIN R SUBQ SCH ×4 (06:31→21:18)
--- NOTE | 2016-09-19 06:42 | Diag Imaging Result Document ---
PROCEDURE NAME: CHEST-1 VIEW - 09/19/2016 CHEST SINGLE VIEW: COMPARISON: Compared to 09/18/2016. FINDINGS: The lungs are well expanded. The patient is slightly rotated to the right. The heart is borderline mildly prominent. Minimal increased markings. No consolidation. No pleural effusions identified. IMPRESSION: Stable chest.
[2016-09-19] MEDS: D5 1/2 NS 1,000 ML IV SCH (08:43)
[2016-09-19] MEDS: ASPIRIN PO SCH (09:16)
[2016-09-19] MEDS: PRAVACHOL PO SCH (09:16)
[2016-09-19] MEDS: PROTONIX IV SCH (19:42)
[2016-09-19] MEDS: LEVAQUIN 250 MG/D5W 50 ML IV SCH (19:42)
[2016-09-19] MEDS: LOVENOX SUBQ SCH (19:42)
[2016-09-19] MEDS: SODIUM CHLORIDE 0.9% INJ SCH (19:42)
[2016-09-20] MEDS: DUONEB (A & A) INH SCH ×6 (03:02→22:51)
[2016-09-20] MEDS: D5 1/2 NS 1,000 ML IV SCH ×2 (03:22→22:28)
[2016-09-20] MEDS: AZACTAM 1 GM in NS 50 ML IV SCH ×4 (05:59→21:37)
[2016-09-20] MEDS: HUMULIN R SUBQ SCH ×4 (06:05→21:37)
[2016-09-20 06:07] LABS: CALCIUM 8.3 mg/dL (8.8-10.2); POTASSIUM 3.8 mmol/L (3.5-5.1)
--- NOTE | 2016-09-20 08:20 | Diag Imaging Result Document ---
PROCEDURE NAME: CHEST-1 VIEW - 09/20/2016 AP PORTABLE CHEST: TIME: 0515 hours. FINDINGS: There is an ill-defined opacity in the left base. There is cardiomegaly. Overall, the appearance of the chest has not changed significantly since 09/19/2016. There has been no significant change since 09/13/2016. IMPRESSION: 1. Atelectasis versus fibrosis in the left lower lobe. 2. Poor inspiration.
[2016-09-20] MEDS: ASPIRIN PO SCH (09:17)
[2016-09-20] MEDS: LOPRESSOR PO SCH ×2 (09:17→21:37)
[2016-09-20] MEDS: PRAVACHOL PO SCH (09:17)
[2016-09-20] MEDS: PROTONIX IV SCH (21:37)
[2016-09-20] MEDS: SODIUM CHLORIDE 0.9% INJ SCH (21:37)
[2016-09-20] MEDS: LOVENOX SUBQ SCH (21:37)
[2016-09-21] MEDS: D5 1/2 NS 1,000 ML IV SCH ×2 (00:01→21:55)
[2016-09-21] MEDS: DUONEB (A & A) INH SCH ×6 (03:25→23:01)
[2016-09-21] MEDS: AZACTAM 1 GM in NS 50 ML IV SCH ×3 (06:06→23:32)
[2016-09-21] MEDS: HUMULIN R SUBQ SCH ×4 (06:06→22:00)
[2016-09-21 07:07] LABS: POTASSIUM 3.6 mmol/L (3.5-5.1)
[2016-09-21] MEDS: PRAVACHOL PO SCH (09:06)
[2016-09-21] MEDS: LOPRESSOR PO SCH ×2 (09:06→21:54)
[2016-09-21] MEDS: ASPIRIN PO SCH (09:06)
[2016-09-21] MEDS: PROTONIX IV SCH (21:54)
[2016-09-21] MEDS: LOVENOX SUBQ SCH (21:54)
[2016-09-21] MEDS: SODIUM CHLORIDE 0.9% INJ SCH (21:54)
[2016-09-21] MEDS: LEVAQUIN 250 MG/D5W 50 ML IV SCH (21:55)
[2016-09-21] MEDS: TRANSDERM-SCOP TD SCH (21:55)
[2016-09-22] MEDS: DUONEB (A & A) INH SCH ×6 (03:52→22:54)
[2016-09-22] MEDS: AZACTAM 1 GM in NS 50 ML IV SCH ×3 (06:22→22:28)
--- NOTE | 2016-09-22 06:29 | Diag Imaging Result Document ---
PROCEDURE NAME: CHEST-PORTABLE - 09/22/2016 PORTABLE CHEST: COMPARISON: 09/20/2016. FINDINGS: The patient is rotated to the right. The lungs are well expanded. The heart is borderline mildly prominent and there is mild central vascular prominence. No consolidation. No pleural effusions identified. Small infiltrates in the left base persist. The overall appearance is similar to that of the prior exam. IMPRESSION: Stable chest.
[2016-09-22 06:59] LABS: CALCIUM 8.1 mg/dL (8.8-10.2)
[2016-09-22] MEDS: HUMULIN R SUBQ SCH ×4 (07:22→22:46)
[2016-09-22] MEDS: LOPRESSOR PO SCH ×2 (09:42→22:35)
[2016-09-22] MEDS: ASPIRIN PO SCH (09:42)
[2016-09-22] MEDS: PRAVACHOL PO SCH (09:42)
[2016-09-22] MEDS ORDERED: CALCIUM GLUCONATE 1 GM in NS 50 ML IV ONE (12:00)
[2016-09-22] MEDS ORDERED: POTASSIUM PHOSPHATE 30 MEQ in NS 250 ML IV ONE (13:00)
[2016-09-22] MEDS: D5 1/2 NS 1,000 ML IV SCH (16:11)
[2016-09-22] MEDS: SODIUM CHLORIDE 0.9% INJ SCH (22:34)
[2016-09-22] MEDS: PROTONIX IV SCH (22:35)
[2016-09-22] MEDS: LOVENOX SUBQ SCH (22:35)
[2016-09-23] MEDS: D5 1/2 NS 1,000 ML IV SCH ×2 (03:33→18:38)
[2016-09-23] MEDS: DUONEB (A & A) INH SCH ×6 (03:37→23:01)
[2016-09-23] MEDS: AZACTAM 1 GM in NS 50 ML IV SCH ×2 (06:10→17:47)
[2016-09-23] MEDS: HUMULIN R SUBQ SCH ×4 (06:14→22:37)
[2016-09-23 07:13] LABS: AGAP 11; BUN 19 mg/dL (8-22); CALCIUM 8.2 mg/dL (8.8-10.2); CHLORIDE 119 mmol/L (98-107); COSMO 309; POTASSIUM 3.2 mmol/L (3.5-5.1); SODIUM 153 mmol/L (136-145); TCO2 23 mmol/L (25-35)
[2016-09-23] MEDS: ASPIRIN PO SCH (09:52)
[2016-09-23] MEDS: PRAVACHOL PO SCH (09:52)
[2016-09-23] MEDS: LOPRESSOR PO SCH ×2 (09:52→22:38)
--- NOTE | 2016-09-23 11:58 | PROGRESS NOTE ---
DATE: 09/23/2016 SUBJECTIVE: A 81-year-old, white gentleman, admitted with hypoxemia and shortness of breath, chest congestion, cough, found to have pneumonia, most likely due to aspiration. The patient was recently discharged with CVA, right-sided weakness. The patient did have significant disease in both the carotids, more so on the right carotid stenosis than the left. The patient was at rehab. The patient is doing fair. The patient is getting speech therapy and evaluation. The patient is also on IV antibiotics. Pulmonary toilet. The patient is not able to communicate well. Oral intake variable. Admission history and physical noted. Past medical history is significant for hypertension, carotid stenosis, pneumonia, CVA, hyperlipidemia. OBJECTIVE: Vital signs noted. Neck is supple. No JVD. Lungs: Bibasilar crepitations. Occasional wheezing. CVS: S1 and S2 heard. Abdomen soft, globular. Bowel sounds present. Extremities: No cyanosis, clubbing. No acute DVT. SCRUM MASTER: Alert, awake. The patient does have expressive aphasia and right-sided weakness. Uncooperative for detailed neurologic examination. LABORATORY DATA: His lab data done today revealed hypokalemia. Potassium was 3.2, sodium 153, chloride 119. I am going to check magnesium level. CBC done on 09/19/2016: Result reviewed. Last chest x-ray done yesterday did reveal stable chest. CONSIDERATION: Patient admitted with 1. Aspiration pneumonia. 2. Cerebrovascular accident with right hemiparesis. 3. Carotid stenosis. 4. Hyperlipidemia. 5. Hypokalemia. Labs and medications reviewed. PLAN: We will continue current treatment, pulmonary toilet, bronchodilator care.
[2016-09-23] MEDS: POTASSIUM CHLORIDE 20 MEQ/SWI 100 ML IV SCH ×2 (14:29→18:38)
[2016-09-23] MEDS: PROTONIX IV SCH (22:26)
[2016-09-23] MEDS: SODIUM CHLORIDE 0.9% INJ SCH (22:26)
[2016-09-23] MEDS: LOVENOX SUBQ SCH (22:38)
[2016-09-23] MEDS: LEVAQUIN 250 MG/D5W 50 ML IV SCH (22:44)
[2016-09-24] MEDS: AZACTAM 1 GM in NS 50 ML IV SCH ×4 (00:29→23:22)
[2016-09-24] MEDS: DUONEB (A & A) INH SCH ×6 (03:05→23:18)
[2016-09-24] MEDS: HUMULIN R SUBQ SCH ×4 (06:28→23:07)
[2016-09-24 07:00] LABS: MANUAL DIFF NEEDED? NO
[2016-09-24 07:27] LABS: BASO% 0.7 % (0.0-0.8); EOS# 0.33 X1000 (0.0-0.7); HEMATOCRIT 40.6 % (42.0-52.0); IMM GRAN# 0.09 X1000 (0.0-0.04); IMM GRAN% 1.6 % (0.0-0.5); LYMPH# 1.16 X1000 (1.2-3.4); MCH 31.6 PG (27-31); MCV 98.8 FL (81-99); MONO% 9.1 % (1.7-9.3); MPV 10.9 FL (7.4-10.4); NEUT% 61.6 % (42.2-75.2); PLT 147 X1000 (130-400); RBC 4.11 XMIL (4.7-6.1)
[2016-09-24 07:44] LABS: AGAP 11; ALBUMIN 2.6 g/dL (3.5-5.0); ALKALINE PHOSPHATASE 59 U/L (32-122); BUN 15 mg/dL (8-22); CALCIUM 7.9 mg/dL (8.8-10.2); CHLORIDE 118 mmol/L (98-107); COSMO 304; GOT 19 U/L (10-34); GPT 19 U/L (10-44); POTASSIUM 3.3 mmol/L (3.5-5.1); SODIUM 152 mmol/L (136-145); TCO2 23 mmol/L (25-35); TOTAL BILIRUBIN 0.48 mg/dL (0.20-1.00); TOTAL PROTEIN 5.5 g/dL (6.3-8.3)
--- NOTE | 2016-09-24 08:46 | Diag Imaging Result Document ---
PROCEDURE NAME: CHEST-1 VIEW - 09/24/2016 AP PORTABLE CHEST AT 0500 HOURS: FINDINGS: There is an apparent nipple shadow over the left costophrenic angle. There is no evidence of acute cardiac or pulmonary disease, although the heart silhouette is enlarged. Compared to 09/22/2016, the appearance of the chest has not changed. IMPRESSION: Cardiomegaly.
[2016-09-24] MEDS: D5 1/2 NS 1,000 ML IV SCH ×2 (10:01→23:10)
[2016-09-24] MEDS: ASPIRIN PO SCH (10:02)
[2016-09-24] MEDS: LOPRESSOR PO SCH ×2 (10:02→23:22)
[2016-09-24] MEDS: PRAVACHOL PO SCH (10:03)
--- NOTE | 2016-09-24 14:56 | PROGRESS NOTE ---
DATE: 09/24/2016 SUBJECTIVE: Mr. Urena is doing fair. Not able to give good history. Does have chest congestion and cough. The patient was admitted with aspiration pneumonia. The patient is on Levaquin and Azactam. Patient was on renal dose but renal function improved. OBJECTIVE: Vital Signs: Reviewed. Neck: Supple. No JVD. Lungs: Bibasilar crepitations. Cardiovascular: S1 and S2 heard. Abdomen: Soft, globular. Bowel sounds present. [employer] BANKER: Alert, awake. The patient does have right hemiparesis. The patient is uncooperative for detailed exam. LABORATORY DATA: Blood work done today, potassium 3.3, sodium 152, BUN 15, creatinine 1.1, magnesium was 1.8. WBC count 5.52, hemoglobin was 13, hematocrit 40.6. Chest x-ray done today revealed cardiomegaly. ASSESSMENT: Overall patient is doing fair. His problems include: 1. Aspiration pneumonia. 2. Acute renal failure, improved. 3. Hypokalemia. 4. History of cerebrovascular accident. PLAN: I am going to supplement potassium. Continue IV antibiotics. Put him on regular dose of Levaquin. Continue pulmonary toilet and aspiration precaution.
[2016-09-24] MEDS: POTASSIUM CHLORIDE 20 MEQ/SWI 100 ML IV SCH ×2 (16:15→18:00)
[2016-09-24] MEDS: SODIUM CHLORIDE 0.9% INJ SCH (23:16)
[2016-09-24] MEDS: PROTONIX IV SCH (23:16)
[2016-09-24] MEDS: TRANSDERM-SCOP TD SCH (23:19)
[2016-09-24] MEDS: LOVENOX SUBQ SCH (23:20)
[2016-09-25] MEDS: LEVAQUIN 500 MG/D5W 100 ML IV SCH ×2 (00:25→21:19)
[2016-09-25] MEDS: DUONEB (A & A) INH SCH ×5 (03:24→23:25)
[2016-09-25] MEDS: AZACTAM 1 GM in NS 50 ML IV SCH ×3 (06:09→22:30)
[2016-09-25] MEDS: HUMULIN R SUBQ SCH ×4 (06:29→21:19)
[2016-09-25 07:23] LABS: AGAP 13; BUN 13 mg/dL (8-22); CALCIUM 7.6 mg/dL (8.8-10.2); CHLORIDE 116 mmol/L (98-107); COSMO 299; POTASSIUM 3.4 mmol/L (3.5-5.1); SODIUM 150 mmol/L (136-145); TCO2 21 mmol/L (25-35)
[2016-09-25] MEDS: ASPIRIN PO SCH (08:56)
[2016-09-25] MEDS: LOPRESSOR PO SCH ×2 (08:56→21:19)
[2016-09-25] MEDS: PRAVACHOL PO SCH (08:56)
[2016-09-25] MEDS ORDERED: POTASSIUM PHOSPHATE 30 MEQ in NS 250 ML IV ONE (11:03)
[2016-09-25] MEDS: D5 1/2 NS + KCL 20 MEQ 1,000 ML IV SCH (11:22)
--- NOTE | 2016-09-25 12:10 | PROGRESS NOTE ---
DATE: 09/25/2016 SUBJECTIVE: The patient is doing better. His general condition is stable. He is recovering from pneumonia. He has cardiomegaly, as noted on the chest x-ray. Potassium is 3.4. He is getting the supplemental potassium. We are going to continue the current management on him. -0
[2016-09-25] MEDS: LOVENOX SUBQ SCH (21:19)
[2016-09-25] MEDS: SODIUM CHLORIDE 0.9% INJ SCH (21:19)
[2016-09-25] MEDS: PROTONIX IV SCH (21:19)
[2016-09-26] MEDS: DUONEB (A & A) INH SCH ×6 (03:33→23:10)
[2016-09-26] MEDS: D5 1/2 NS + KCL 20 MEQ 1,000 ML IV SCH ×2 (05:58→21:46)
[2016-09-26] MEDS: AZACTAM 1 GM in NS 50 ML IV SCH ×2 (06:00→15:21)
[2016-09-26] MEDS: HUMULIN R SUBQ SCH ×4 (06:15→21:46)
[2016-09-26 07:28] LABS: AGAP 10; BUN 13 mg/dL (8-22); CALCIUM 7.8 mg/dL (8.8-10.2); CHLORIDE 116 mmol/L (98-107); COSMO 296; POTASSIUM 3.5 mmol/L (3.5-5.1); SODIUM 148 mmol/L (136-145); TCO2 22 mmol/L (25-35)
[2016-09-26] MEDS: LOPRESSOR PO SCH ×2 (08:01→21:46)
[2016-09-26] MEDS: ASPIRIN PO SCH (08:02)
[2016-09-26] MEDS: PRAVACHOL PO SCH (08:02)
[2016-09-26] MEDS ORDERED: CALCIUM GLUCONATE 1 GM in NS 50 ML IV ONE (09:00)
[2016-09-26] MEDS ORDERED: POTASSIUM PHOSPHATE 30 MEQ in NS 250 ML IV ONE (10:00)
--- NOTE | 2016-09-26 19:46 | DISCHARGE SUMMARY ---
ADMISSION DATE: 09/11/2016 DISCHARGE DATE: 09/27/2016 DISCHARGE DIAGNOSIS: Altered mental status due to profound dehydration with azotemia. SECONDARY DIAGNOSIS: Aspiration bronchitis. OTHER DIAGNOSES: 1. 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 2. Bilateral carotid disease, the right side is 80% and left side is 70%. 3. CAD with 2 stents, dementia, deafness, depression, type 2 diabetes and kidney stones. 4. Incontinence of urine. CONSULTATIONS: 1. Dr. Coyle 2. Dr. Morgan. PROCEDURES: Renal ultrasounds left kidney is 9 cm. Right kidney is 12 cm nonobstructing right renal stone. BRIEF HISTORY: Please see the H and P that was done by Dr. De Los Santos. In brief, he is a 80-year-old white gentleman who was readmitted to the hospital after he had a stroke with right hemiparesis. He has been recovering in the skilled nursing for aggressive physical therapy. He was brought in with altered mental status, confusion and dehydration, cough and fever with aspiration bronchitis. He did not have any definite infiltrates. He was profoundly hypotensive and acute kidney injury due to azotemia. HOSPITAL COURSE: 1. In the ICU, he was given oxygen, bronchodilators, IV antibiotics with IV aztreonam and Levaquin. 2. Hypotension. Started on IV fluids and IV vasopressors. Discontinue the hydrochlorothiazide and Lotrel. 3. He was given free water after stabilizing the blood pressure with crystalloids and NG tube was placed, and was given free water as well as feedings. 4. After kidney function test came back normal, his baseline status is improved. He is able to move right upper extremity better than the right leg. He needs aggressive physical therapy. 5. A swallowing study showed a high risk for aspiration. Continue pureed diet. Keep him in the upright position. He has plenty of oral secretions for which he was given a scopolamine patch. He was also given ancillary support with Protonix and Lovenox for GI and DVT prophylaxis. 6. Tuttle catheter was placed. He was voiding urine in the diapers. 7. He was also getting stage I sacral ulcer. Continue on Calmoseptine cream and frequent body change position and air mattresses. 8. He is also due for a left carotid endarterectomy once his situation improves. 9. During this admission, I discontinued hydrochlorothiazide as well as amlodipine and decreased the lisinopril dose. 10. He continues to have high sodium levels and he needs free water 250 mL every q.6h hours along with Glucerna 1 can p.o. t.i.d. LABORATORY: At the time of discharge as follows. CBC: White cell count 5.5, hematocrit 40, platelets 147,000. SMA 7, sodium 148, potassium 3.85, chloride 116, BUN 13 and creatinine 1.6. Glucose 125, calcium 7.8, albumin 2.6. Chest x-ray was improved. Patient was given flu vaccine 08/25/2016. DISCHARGE INSTRUCTIONS: 1. Metformin 500 p.o. b.i.d. 2. Potassium 15 mEq daily. 3. Aspirin 325 daily. 4. Lovenox 40 mg subcutaneous daily. 5. Lopressor 12.5 p.o. b.i.d. 6. Pravastatin 40 daily. 7. Scopolamine patch 1 every 72 hours. 8. Lisinopril 10 mg daily. 9. Nebulizers q.6h as needed. 10. Puree diet. 11. Insulin sliding scale. 12. Care of the skin, bladder, and bowels. 13. Aggressive physical therapy. 14. Recommend interval carotid endarterectomy once his situation improves. 15. 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 16. Will follow up as an outpatient. [email or web address]
[2016-09-26] MEDS: LOVENOX SUBQ SCH (21:46)
[2016-09-26] MEDS: PROTONIX IV SCH (21:47)
[2016-09-26] MEDS: LEVAQUIN 500 MG/D5W 100 ML IV SCH (21:47)
[2016-09-27] MEDS: DUONEB (A & A) INH SCH ×3 (03:35→11:07)
[2016-09-27] MEDS: AZACTAM 1 GM in NS 50 ML IV SCH ×2 (03:53→06:04)
[2016-09-27] MEDS: HUMULIN R SUBQ SCH (06:04)
[2016-09-27 07:17] LABS: AGAP 14; BUN 12 mg/dL (8-22); CALCIUM 8.1 mg/dL (8.8-10.2); CHLORIDE 114 mmol/L (98-107); COSMO 296; POTASSIUM 3.4 mmol/L (3.5-5.1); SODIUM 149 mmol/L (136-145); TCO2 21 mmol/L (25-35)
[2016-09-27 07:54] VITALS: BP 145/66
[2016-09-27] MEDS: D5 1/2 NS + KCL 20 MEQ 1,000 ML IV SCH (09:25)
[2016-09-27] MEDS: ASPIRIN PO SCH (09:28)
[2016-09-27] MEDS: LOPRESSOR PO SCH (09:28)
[2016-09-27] MEDS: PRAVACHOL PO SCH (09:29)
== END 2016-09-27 15:38 | DRG 178 ==
LOC: EDBD → ED 17:15 → EDIPHOLD 19:16 → ICU 19:37 → DIRADM 09-13 13:30 → ICU 09-13 13:33 → 3N 09-20 10:06
PROVIDERS: ADMIT Internal Medicine; ATTEND Internal Medicine
DX: J69.0 Pneumonitis due to inhalation of food and vomit (principal); N17.9 Acute kidney failure, unspecified; L89.151 Pressure ulcer of sacral region, stage 1; E87.0 Hyperosmolality and hypernatremia; E87.2 Acidosis; E11.22 Type 2 diabetes mellitus with diabetic chronic kidney disease; R13.10 Dysphagia, unspecified; I69.354 Hemiplegia and hemiparesis following cerebral infarction affecting left non-dominant side; F03.90 Unspecified dementia, unspecified severity, without behavioral disturbance, psychotic disturbance, mood disturbance, and anxiety; E87.5 Hyperkalemia; E87.70 Fluid overload, unspecified; E86.0 Dehydration; I65.23 Occlusion and stenosis of bilateral carotid arteries; D64.9 Anemia, unspecified; N18.3 Chronic kidney disease, stage 3 (moderate); I69.391 Dysphagia following cerebral infarction; I69.320 Aphasia following cerebral infarction; I12.9 Hypertensive chronic kidney disease with stage 1 through stage 4 chronic kidney disease, or unspecified chronic kidney disease; E78.5 Hyperlipidemia, unspecified; R09.02 Hypoxemia; E87.6 Hypokalemia; I25.10 Atherosclerotic heart disease of native coronary artery without angina pectoris; N40.1 Benign prostatic hyperplasia with lower urinary tract symptoms; N39.498 Other specified urinary incontinence; H91.90 Unspecified hearing loss, unspecified ear; F32.9 Major depressive disorder, single episode, unspecified; Z79.899 Other long term (current) drug therapy; Z79.84 Long term (current) use of oral hypoglycemic drugs; Z79.82 Long term (current) use of aspirin; Z95.5 Presence of coronary angioplasty implant and graft
CPT/HCPCS: 51702; 71010; 74000; 76770; 80048; 80053; 80069; 81001; 82550; 82570; 82805; 82948; 83605; 83735; 83935; 84156; 84300; 84484; 84540; 85025; 85610; 85730; 86850; 86900; 86901; 87040; 93005; 93010; 94640; 94760; 94761; 94762; 96365; 96375; C9113; J0456; J0610; J1650; J1940; J2370; J3370; J3480; J7030; J7050; J7070; S0073; 92526-GN; 92610-GN; 97001-GP; 97110-GP; 97530-GP; S0164